=== PATIENT | female | born 1985 | race African-American/Black ===

== ENCOUNTER 2019-05-14 23:54 | Emergency (ER) | payer OTHER ==
[~2019-05-14] VITALS: Ht 152.4 cm; Wt 105.2 kg
[2019-05-15] MEDS ORDERED: NORVIR100 M1 PO (00:11)
[2019-05-15 00:46] LABS: URINE BILIRUBIN NEGATIVE (Negative); URINE BLOOD 2+ (Negative); URINE CLARITY CLEAR; URINE COLOR YELLOW; URINE GLUCOSE-RANDOM NEGATIVE (Negative); URINE KETONES NEGATIVE (Negative); URINE NITRITE-REFLEX NEGATIVE (Negative); URINE PROTEIN NEGATIVE (Negative); URINE SPECIFIC GRAVITY 1.015 (1.005-1.030)
[2019-05-15 00:50] LABS: URINE LEUKOCYTES-REFLEX 2+ (Negative)
[2019-05-15] MEDS ORDERED: MACROBID 100 M100 M1 PO (01:52)
[2019-05-15 02:01] VITALS: BP 144/79
[2019-05-15 02:12] LABS: CASTS None Seen /LPF (None Seen); MUCUS 4-6 Moderate strn/LPF (None Seen); SQUAMOUS 4-10 Moderate /LPF (0-3)
[2019-05-15 02:13] LABS: URINE RBC 3-10 Few /HPF (0-2); URINE WBC-REFLEX 6-15 Few /HPF (0-5)
[2019-05-15 02:14] LABS: CRYSTALS None Seen /LPF (None Seen)
== END 2019-05-15 02:01 | disposition home or self-care (01) ==
LOC: M.ERS 23:54
PROVIDERS: Emergency Medicine
DX: N39.0 Urinary tract infection, site not specified (principal); I10 Essential (primary) hypertension

== ENCOUNTER 2019-05-20 01:37 | Emergency (ER) | payer OTHER ==
[~2019-05-20] VITALS: Ht 152.4 cm; Wt 106.1 kg
[~2019-05-20 01:37] MED LIST: MACROBID 100 M100 M1 PO; NORVIR100 M1 PO
[2019-05-20] MEDS ORDERED: AUGMENTIN 500-1 EACH PO (03:00)
[2019-05-20] MEDS ORDERED: HYDROCODON-ACE1 EAC7 PO (03:00)
[2019-05-20 03:07] VITALS: BP 141/101
== END 2019-05-20 03:09 | disposition home or self-care (01) ==
LOC: M.ERS 01:37
DX: L03.211 Cellulitis of face (principal); I10 Essential (primary) hypertension; M79.7 Fibromyalgia; Z21 Asymptomatic human immunodeficiency virus [HIV] infection status